=== PATIENT | male | born 1935 | race Caucasian/White ===

== ENCOUNTER → 2016-10-30 | Outpatient (CLI) | payer MEDICARE ==
[~2016-10-30] MED LIST: ASPIRIN PO; CENTRUM SILVER PO; COREG PO; CRESTOR PO; HCTZ PO; IMDUR PO; LIPOFEN PO; NORVASC PO; OMEGA 3 PO; PLAVIX PO; VICODIN PO
[2016-10-30 14:16] LABS: INR 2.4; PROTHROMBIN TIME (PATIENT) 25.8 SECONDS (9.6-11.5)
== END | disposition home or self-care (01) ==
LOC: CLAB 13:28
PROVIDERS: Internal Medicine Cardiovascular Disease
DX: Z51.81 Encounter for therapeutic drug level monitoring (principal); I48.91 Unspecified atrial fibrillation; Z79.01 Long term (current) use of anticoagulants
CPT/HCPCS: 85610

== ENCOUNTER → 2016-11-07 | Outpatient (CLI) | payer MEDICARE ==
[2016-11-07 12:51] LABS: INR 3.8
[2016-11-07 12:53] LABS: PROTHROMBIN TIME (PATIENT) 42.1 SECONDS (9.6-11.5)
== END | disposition home or self-care (01) ==
LOC: CLAB 12:05
PROVIDERS: Internal Medicine Cardiovascular Disease
DX: I48.91 Unspecified atrial fibrillation (principal)
CPT/HCPCS: 36415; 85610

== ENCOUNTER → 2016-11-14 | Outpatient (CLI) | payer MEDICARE ==
[2016-11-14 13:38] LABS: INR 2.8; PROTHROMBIN TIME (PATIENT) 31.1 SECONDS (9.6-11.5)
== END | disposition home or self-care (01) ==
LOC: CLAB 12:56
PROVIDERS: Internal Medicine Cardiovascular Disease
DX: Z51.81 Encounter for therapeutic drug level monitoring (principal); I48.91 Unspecified atrial fibrillation; Z79.01 Long term (current) use of anticoagulants
CPT/HCPCS: 36415; 85610

== ENCOUNTER → 2016-11-28 | Outpatient (CLI) | payer MEDICARE ==
[2016-11-28 11:05] LABS: INR 2.8; PROTHROMBIN TIME (PATIENT) 30.1 SECONDS (9.6-11.5)
== END | disposition home or self-care (01) ==
LOC: CLAB 10:08
PROVIDERS: Internal Medicine Cardiovascular Disease
DX: I48.91 Unspecified atrial fibrillation (principal)
CPT/HCPCS: 36415; 85610

== ENCOUNTER → 2016-12-12 | Outpatient (CLI) | payer MEDICARE ==
[2016-12-12 11:26] LABS: PROTHROMBIN TIME (PATIENT) 44.1 SECONDS (9.6-11.5)
== END | disposition home or self-care (01) ==
LOC: CLAB 10:38
DX: Z51.81 Encounter for therapeutic drug level monitoring (principal); I48.91 Unspecified atrial fibrillation; Z79.01 Long term (current) use of anticoagulants
CPT/HCPCS: 36415; 85610

== ENCOUNTER → 2016-12-19 | Outpatient (CLI) | payer MEDICARE ==
[2016-12-19 11:50] LABS: INR 2.1; PROTHROMBIN TIME (PATIENT) 22.8 SECONDS (9.6-11.5)
== END | disposition home or self-care (01) ==
LOC: CLAB 10:30
DX: Z51.81 Encounter for therapeutic drug level monitoring (principal); I48.91 Unspecified atrial fibrillation; Z79.01 Long term (current) use of anticoagulants
CPT/HCPCS: 36415; 85610

== ENCOUNTER → 2017-01-02 | Outpatient (CLI) | payer MEDICARE ==
[2017-01-02 12:17] LABS: INR 2.1; PROTHROMBIN TIME (PATIENT) 22.3 SECONDS (9.6-11.5)
== END | disposition home or self-care (01) ==
LOC: CLAB 11:27
PROVIDERS: Internal Medicine Cardiovascular Disease
DX: Z51.81 Encounter for therapeutic drug level monitoring (principal); I48.91 Unspecified atrial fibrillation; Z79.01 Long term (current) use of anticoagulants
CPT/HCPCS: 36415; 85610

== ENCOUNTER → 2017-01-11 | Outpatient (CLI) | payer MEDICARE ==
[2017-01-11 11:14] LABS: INR 2.3; PROTHROMBIN TIME (PATIENT) 25.5 SECONDS (10.0-11.7)
== END | disposition home or self-care (01) ==
LOC: CLAB 10:20
PROVIDERS: Internal Medicine Cardiovascular Disease
DX: Z51.81 Encounter for therapeutic drug level monitoring (principal); I48.91 Unspecified atrial fibrillation; Z79.01 Long term (current) use of anticoagulants
CPT/HCPCS: 36415; 85610

== ENCOUNTER → 2017-01-25 | Outpatient (CLI) | payer MEDICARE ==
[2017-01-25 10:14] LABS: INR 2.5; PROTHROMBIN TIME (PATIENT) 26.8 SECONDS (10.0-11.7)
== END | disposition home or self-care (01) ==
LOC: CLAB 09:18
PROVIDERS: Internal Medicine Cardiovascular Disease
DX: Z51.81 Encounter for therapeutic drug level monitoring (principal); I48.91 Unspecified atrial fibrillation; Z79.899 Other long term (current) drug therapy
CPT/HCPCS: 85610

== ENCOUNTER → 2017-01-25 | Outpatient (CLI) | payer MEDICARE ==
[2017-01-25 10:02] LABS: HEMATOCRIT 42.6 % (38.0-50.0); HEMOGLOBIN 13.8 gm/dL (13.0-16.0); MEAN CELL VOLUME 90.4 FL (83-96); MEAN CORPUSCULAR HEMOGLOBIN 29.3 PG (28-34); MEAN CORPUSCULAR HGB CONC 32.4 g/dL (30-36); MEAN PLATELET VOLUME 9.3 FL (6.5-11.5); RED BLOOD COUNT 4.71 X10e (3.90-5.60); RED CELL DISTRIBUTION WIDTH 13.3 % (11.0-15.5); WHITE BLOOD COUNT 6.9 X10e3 (4.0-10.5)
[2017-01-25 10:51] LABS: ALBUMIN SERUM 3.8 g/dL (3.5-5.0); CALCIUM SERUM 8.8 mg/dL (8.4-10.2); CREATININE SERUM 0.9 mg/dL (0.6-1.4); GLOM FILT RATE Estimated 79.3 mL/min (>60); POTASSIUM 4.2 mmol/L (3.5-5.1); PROTEIN TOTAL SERUM 5.9 g/dL (6.0-8.3)
== END | disposition home or self-care (01) ==
LOC: CLAB 09:21
PROVIDERS: Dermatology
DX: L10.9 Pemphigus, unspecified (principal)
CPT/HCPCS: 36415; 80053; 85027

== ENCOUNTER → 2017-02-08 | Outpatient (CLI) | payer MEDICARE ==
[2017-02-08 11:58] LABS: INR 1.8; PROTHROMBIN TIME (PATIENT) 20.1 SECONDS (10.0-11.7)
== END | disposition home or self-care (01) ==
LOC: CLAB 11:13
PROVIDERS: Internal Medicine Cardiovascular Disease
DX: Z51.81 Encounter for therapeutic drug level monitoring (principal); I48.91 Unspecified atrial fibrillation; Z79.01 Long term (current) use of anticoagulants
CPT/HCPCS: 36415; 85610

== ENCOUNTER → 2017-03-19 | Outpatient (CLI) | payer MEDICARE ==
[2017-03-19 11:47] LABS: INR 2.4; PROTHROMBIN TIME (PATIENT) 26.4 SECONDS (10.0-11.7)
== END | disposition home or self-care (01) ==
LOC: CLAB 11:01
PROVIDERS: Internal Medicine Cardiovascular Disease
DX: Z51.81 Encounter for therapeutic drug level monitoring (principal); I48.91 Unspecified atrial fibrillation; Z79.01 Long term (current) use of anticoagulants
CPT/HCPCS: 36415; 85610

== ENCOUNTER → 2017-03-26 | Outpatient (CLI) | payer MEDICARE ==
[2017-03-26 10:19] LABS: INR 2.5; PROTHROMBIN TIME (PATIENT) 27.6 SECONDS (10.0-11.7)
== END | disposition home or self-care (01) ==
LOC: CLAB 09:38
PROVIDERS: Internal Medicine Cardiovascular Disease
DX: Z51.81 Encounter for therapeutic drug level monitoring (principal); I48.91 Unspecified atrial fibrillation; Z79.01 Long term (current) use of anticoagulants
CPT/HCPCS: 36415; 85610